=== PATIENT | female | born 1970 | race Hispanic/Latino ===

== ENCOUNTER 2018-06-25 16:08 | Emergency (ER) | payer SELFPAY ==
[2018-06-25 17:15] LABS: #Basophils 0.1 thou/uL (0.0-0.2); #Eosinphils 0.1 thou/uL (0.0-0.7); #Lymphocytes 1.9 thou/uL (1.20-3.40); #Monocytes 0.7 thou/uL (0.11-0.59); #Neutrophils 9.9 thou/uL (1.40-6.50); %Basophils 0.5 % (0.0-1.0); %Eosinophils 0.4 % (0.0-10.0); %Lymphocytes 14.9 % (21.0-51.0); %Monocytes 5.6 % (0.0-10.0); %Neutrophils 78.5 % (42.0-75.0); Hemoglobin 14.9 g/dL (12.0-16.0); Mean Corpuscular HGB CONC 32.7 g/dL (32.0-36.0); Mean Corpuscular Hemoglobin 31.3 pg (27.0-31.0); Mean Corpuscular Volume 95.6 fL (78.0-98.0); Mean Platelet Volume 7.7 fL (7.4-10.4); Platelet Count 268 thou/uL (130-400); RBC Distribution Width 11.5 % (11.5-14.5); Red Blood Cell (RBC) Count 4.77 mill/uL (4.20-5.40); White Blood Cell (WBC) Count 12.7 thou/uL (4.8-10.8)
[2018-06-25 17:28] LABS: Bilirubin Negative (Negative); Blood, Urine Trace (Negative); Clarity CLEAR (Clear); Glucose, Urine (Dipstick) >=1000 mg/dL (Negative); Leukocyte Negative (Negative); Nitrite Negative (Negative); Protein, Urine (Dipstick) Negative (Neg-Trace); Specific Gravity, Urine 1.036 (1.002-1.036); Urobilinogen 0.2 mg/dL (0.2-1.0); pH, Urine 5.5 (5.0-9.0)
[2018-06-25 17:29] LABS: Bacteria/HPF Rare-Few HPF (None Seen); Hyaline Casts/LPF 0-3 HYALINE CAST LPF (0-3 Hyaline); Pathc Cast-AUWi Flag 0.29 (0-2.49); Pregnancy Test - Urine (BHCG) Negative (Negative); Pregu Control Background? CLEAR/WHITE (CLR/WHITE); Pregu Control Bar Appear? YES (CONTROL BAR); Specific Gravity 1.036 (1.002-1.036)
[2018-06-25 17:35] LABS: RBC/HPF 0-3 HPF (0-3); Yeast-All Forms Rare HPF (None Seen)
[2018-06-25 17:38] LABS: ALT (SGPT) 14 U/L (8-55); AST (SGOT) 21 U/L (5-34); Albumin 4.1 g/dL (3.5-5.0); Alkaline Phosphatase 176 U/L (40-150); Anion Gap 12 mmol/L (10-20); BUN (Urea Nitrogen) 9 mg/dL (7.0-18.7); Bilirubin, Total 0.7 mg/dL (0.2-1.2); Calc. Creatinine Clearance 0 mL/min (70-130); Calcium 9.7 mg/dL (7.8-10.44); Carbon Dioxide 25 mmol/L (22-29); Chloride 98 mmol/L (98-107); Estimated GFR-MDRD 71; Globulin 3.3 g/dL (2.4-3.5); Glucose 479 mg/dL (70-105); Potassium 4.4 mmol/L (3.5-5.1); Protein, Total 7.4 g/dL (6.0-8.3); Sodium 131 mmol/L (136-145)
[2018-06-25 18:00] LABS: Base Excess-Venous -0.5 mmol/L (0 (+/- 2.5)); Bicarbonate (HCO3v) 26.3 mmol/L (1.0-85.0); CO2 Tension (PvCO2) 50.4 mmHg (41.0-51.0); Calcium, Ionized 1.15 mmol/L (1.12-1.32); Hemoglobin - Calc 14.6 g/dL (12.0-18.0); O2 Tension (PvO2) 36.9 mmHg (35.0-45.0); T. Carbon Dioxide 27.9 mmol/L (1.0-85.0); pH (Venous) 7.326 (7.35-7.45); vO2 Saturation-calc 65.3 % (94-98)
[2018-06-25] MEDS ORDERED: Insulin Regular 300 UNITS/3 ML VIAL ONE (18:35)
[2018-06-27 22:31] LABS: Chlamydia by PCR Not Detected (NotDetected); GC by PCR Not Detected (NotDetected)
== END 2018-06-25 19:37 | disposition home or self-care (01) ==
LOC: ERS 16:08
DX: E11.65 Type 2 diabetes mellitus with hyperglycemia (principal); N76.0 Acute vaginitis; Z79.84 Long term (current) use of oral hypoglycemic drugs; Z79.899 Other long term (current) drug therapy
CPT/HCPCS: 36416; 80053; 81003; 81015; 81025; 82010; 82330; 82803; 83930; 85025; 87480; 87491; 87510; 87591; 87660; 93005; 96361; 96374; J1815

== ENCOUNTER 2020-02-18 17:49 | Observation (INO) | payer OTHER, SELFPAY ==
[2020-02-18] MEDS ORDERED: Ibuprofen 200 MG TAB ONE (19:20)
[2020-02-18 19:55] LABS: #Lymphocytes 0.9 thou/uL (1.20-3.40); #Monocytes 0.5 thou/uL (0.11-0.59); #Neutrophils 10.5 thou/uL (1.40-6.50); %Basophils 0.2 % (0.0-1.0); %Eosinophils 0.1 % (0.0-10.0); %Lymphocytes 7.6 % (21.0-51.0); %Monocytes 4.3 % (0.0-10.0); %Neutrophils 87.8 % (42.0-75.0); Hemoglobin 13.2 g/dL (12.0-16.0); Mean Corpuscular Hemoglobin 30.9 pg (27.0-31.0); Mean Corpuscular Volume 93.8 fL (78.0-98.0); Mean Platelet Volume 7.5 fL (7.4-10.4); Platelet Count 266 thou/uL (130-400); RBC Distribution Width 11.9 % (11.5-14.5); Red Blood Cell (RBC) Count 4.28 mill/uL (4.20-5.40)
--- NOTE | 2020-02-18 19:55 | RAD ---
RADIOGRAPH CHEST 1 VIEW: DATE: 02/18/2020 TIME: 7:41 PM HISTORY: 49-year-old female with hypoxemia, tachycardia, tachypnea, and fever COMPARISON: none FINDINGS: There are bilateral lower lung zone infiltrates, left greater than right. Lung apices are grossly carmen ar. There is fracture of the mid diaphysis of the right clavicle, with approximately one full shaft width inferior displacement and probable lateral displacement, of the lateral fragment. There appears to be a long osseous bridge or advanced callus between the medial and lateral fracture fragments, suggesting that this fracture is late subacute or old. IMPRESSION: 1. Bibasilar infiltrates 2. Right clavicular displaced fracture, probably nonacute, but clinical correlation is recommended.
[2020-02-18 20:01] LABS: Bilirubin Negative (Negative); Blood, Urine Trace (Negative); Clarity Clear (Clear); Glucose, Urine (Dipstick) Greater than 1000 mg/dL (Negative); Ketone, Urine Greater than 150 mg/dL (Negative); Leukocyte Negative Leu/uL (Negative); Nitrite Negative (Negative); Pregnancy Test - Urine (BHCG) Negative (Negative); Pregu Control Background? CLEAR/WHITE (CLR/WHITE); Pregu Control Bar Appear? YES (CONTROL BAR); Protein, Urine (Dipstick) 200 mg/dL (Neg-Trace); RBC/HPF 0-3 HPF (0-3); Specific Gravity 1.039 (1.002-1.036); Specific Gravity, Urine 1.039 (1.002-1.036); WBC/HPF 0-3 HPF (0-3)
[2020-02-18 20:03] LABS: Bacteria/HPF 1+ HPF (None Seen)
[2020-02-18 20:16] LABS: ALT (SGPT) 11 U/L (8-55); AST (SGOT) 18 U/L (5-34); Albumin 3.9 g/dL (3.5-5.0); Alkaline Phosphatase 72 U/L (40-110); Anion Gap 16 mmol/L (10-20); BUN (Urea Nitrogen) 8 mg/dL (7.0-18.7); Bilirubin, Total 0.7 mg/dL (0.2-1.2); CK (CPK) 76 U/L (29-168); Calc. Creatinine Clearance 0 mL/min (70-130); Calcium 9.1 mg/dL (7.8-10.44); Carbon Dioxide 24 mmol/L (22-29); Chloride 95 mmol/L (98-107); Estimated GFR-MDRD 79; Globulin 3.8 g/dL (2.4-3.5); Glucose 266 mg/dL (70-105); Protein, Total 7.7 g/dL (6.0-8.3); Sodium 131 mmol/L (136-145)
[2020-02-18] MEDS ORDERED: cefTRIAXone\\ROCEPHIN 2 GM VIAL ONE (20:16)
[2020-02-18] MEDS ORDERED: Dexamethasone 10 MG/ML VIAL ONE (20:16)
[2020-02-18] MEDS ORDERED: Azithromycin 500 MG VIAL ONE (20:16)
[2020-02-18] MEDS ORDERED: Ondansetron PF 4 MG/2 ML Vial IVP PRN (23:43)
[2020-02-18] MEDS ORDERED: Ondansetron ODT 4 MG TAB SL PRN (23:43)
[2020-02-18] MEDS ORDERED: Sodium Chloride 0.9% 1,000 ML IV SCH (23:43)
[2020-02-18] MEDS ORDERED: Acetaminophen 325 MG TAB PO PRN (23:43)
[2020-02-18 23:50] VITALS: BMI 37.1
[2020-02-19] MEDS ORDERED: HumaLOG 300 UNITS/3 ML VIAL SC PRN (07:03)
[2020-02-19] MEDS ORDERED: Dextrose 50% Abboject 50 ML SYRINGE SLOW IVP PRN (07:03)
[2020-02-19] MEDS ORDERED: Dextrose 5% in Water 1,000 ML IV PRN (07:03)
--- NOTE | 2020-02-19 08:13 | HP ---
REASON FOR ADMISSION: Headache. HISTORY OF PRESENT ILLNESS: This is a 49-year-old female patient, who presented to the emergency room reporting having headaches. History going back to one week before her presentation, she also reported intermittent nausea, felt nauseous but did not have any vomiting, felt like she has some chest congestion. A chest x-ray was done that showed findings consistent of COVID-19. PAST MEDICAL HISTORY: Diabetes. SOCIAL HISTORY: She does not smoke. Does not drink alcohol. FAMILY HISTORY: Reviewed, found to be noncontributory. ALLERGIES: NO KNOWN TO HAVE DRUG ALLERGIES. PHYSICAL EXAMINATION: GENERAL: She is awake, alert, and oriented, does not appear in distress. VITAL SIGNS: Her blood pressure is 108/55, pulse 95, temperature 99 degrees, and saturating 96% on 2 L nasal cannula. HEENT: Head is nontraumatic and normocephalic. Pupils equal, reactive. Extraocular movements are intact. Nonicteric sclerae. Well-injected conjunctivae. Oral mucosa normal. Nasal mucosa normal. NECK: Supple. No adenopathy. No murmur. Thyroid is not palpable. Trachea is midline. No supraclavicular lymphadenopathy. HEART: S1 and S2, regular. No murmurs. No gallops. No friction rubs. No displacement of PMI. LUNGS: Inspiratory crackles bilaterally. ABDOMEN: Bowel sounds are positive. Nontender abdomen. No hepatosplenomegaly. EXTREMITIES: No lower extremity edema. No cyanosis noted. NEUROLOGIC: Cranial nerves 2 through 12 within normal limits. Normal motor function. Normal sensory function. Normal reflexes. LABORATORY DATA: Blood work shows a WBC of 12, hemoglobin of 13.2, neutrophil count 87.8%. Sodium 131, potassium of 4, BUN 8, creatinine 0.78, and glucose of 266. Urinalysis does not show any evidence of infection. A chest x-ray shows bibasilar infiltrate, right clavicular displaced fracture probably nonacute, but clinical correlation is recommended. ASSESSMENT AND PLAN: This is a 49-year-old female patient, presenting with cough and headaches. Chest x-ray consistent with COVID. We did send a COVID-19 test. We admitted her overnight and she appears to be doing well. We will continue giving her IV Decadron and for her diabetes, we will have her on insulin sliding scale and reconcile her home medications. For deep venous thrombosis prophylaxis, she will be on Lovenox subcutaneously. Job ID: [id number]
[2020-02-19] MEDS ORDERED: Pioglitazone HCl 15 MG TAB PO SCH (09:00)
[2020-02-19] MEDS ORDERED: Enoxaparin Sodium 40 MG/0.4 ML SYRINGE SC SCH (09:00)
[2020-02-19] MEDS ORDERED: Dexamethasone 6 MG in Sodium Chloride 0.9% 50 ML IVPB SCH (09:00)
[2020-02-19 12:38] VITALS: BP 109/53; TEMP 97.4
[2020-02-19 14:47] LABS: SARS-CoV-2 MS2 Positive; SARS-CoV-2 N Gene Positive; SARS-CoV-2 S Gene Positive; SARS-CoV-2 orf1ab Positive
--- NOTE | 2020-02-20 01:52 | DIS ---
DATE OF ADMISSION: 02/18/2020 DATE OF DISCHARGE: 02/19/2020 HOSPITAL COURSE: Ms. Harry is a 49-year-old female with medical history of diabetes, who presented with cough and headaches for the past week. She was diagnosed with COVID pneumonia based on chest x-ray findings, symptoms, and PCR, but did not require further inpatient management. She did not have fevers, dyspnea, or requirement for oxygen supplementation. As for her headaches, she was diagnosed with tension headaches that significantly improved during her inpatient stay. She was discharged home with instructions regarding isolation on Decadron and azithromycin for six additional days with followup appointments with primary care physician. PHYSICAL EXAMINATION: VITAL SIGNS: Blood pressure 109/53, pulse 86, respiratory rate 18, oxygen saturation 92% on room air, and temperature 97.4. GENERAL: Lying comfortably in bed, in no apparent distress. Morbidly obese. HEENT: Normocephalic and atraumatic. No lymphadenopathy. HEART: Regular rate and rhythm. No murmurs, rubs, or gallops. LUNGS: Mild inspiratory rales, mostly bibasilar. ABDOMEN: Nontender and nondistended. Normal bowel sounds. EXTREMITIES: No edema. NEUROLOGIC: Cranial nerves 2 through 12 grossly intact. PSYCHIATRIC: Proper mood and affect. Alert and oriented x3. MEDICATION LIST: New medications; 1. Acetaminophen for headaches. 2. Decadron 6 mg p.o. daily for six more days to complete treatment for 7 days. 3. Azithromycin 500 mg p.o. daily for six more days to complete treatment for 7 days. Continued medications; 1. Glipizide. 2. Pioglitazone. 3. Metformin. Modified medications, no modified medications. Job ID: [id number]
== END 2020-02-19 16:34 | disposition home or self-care (01) ==
LOC: ERS 17:49 → 2SW 23:39
PROVIDERS: ADMIT Internal Medicine; ATTEND Internal Medicine
DX: U07.1 COVID-19 (principal); J12.89 Other viral pneumonia; R51 Headache; E11.9 Type 2 diabetes mellitus without complications; Z79.84 Long term (current) use of oral hypoglycemic drugs
CPT/HCPCS: 36415; 36416; 71045; 80053; 81003; 81015; 81025; 82550; 83605; 84145; 84484; 85025; 87040; 87077; 87086; 87635; 93005; 94760; 96361; 96365; 96367; 96372; 96375; 96376; G0378; J0456; J0696; J1100; J1650; U0003

== ENCOUNTER 2025-05-16 22:38 | Emergency (ER) | payer OTHER, SELFPAY ==
[2025-05-17] MEDS ORDERED: Ketorolac Tromethamine 30 MG (1 mL) VIAL ONE (01:12)
[2025-05-17 01:27] LABS: #Basophils 0.05 10x3/uL (0.0-0.2); #Eosinophils 0.13 10x3/uL (0.0-0.7); #Monocytes 0.62 10x3/uL (0.11-0.59); #Neutrophils 4.22 10x3/uL (1.40-6.50); %Basophils 0.7 % (0.0-1.0); %Eosinophils 1.8 % (0.0-10.0); %Lymphocytes 31.0 % (21.0-51.0); %Monocytes 8.5 % (0.0-10.0); %Neutrophils 57.7 % (42.0-75.0); Hematocrit 38.4 % (36.0-47.0); Hemoglobin 12.4 g/dL (12.0-16.0); Mean Corpuscular Hemoglobin 29.9 pg (27.0-31.0); Mean Corpuscular Volume 92.5 fL (78.0-98.0); Platelet Count 289 10x3/uL (130-400); Red Blood Cell (RBC) Count 4.15 mill/uL (4.20-5.40); White Blood Cell (WBC) Count 7.30 10x3/uL (4.8-10.8)
[2025-05-17 01:46] LABS: ALT (SGPT) 8 U/L (Less than 34); AST (SGOT) 17 U/L (11-34); Albumin 4.2 g/dL (3.1-4.5); Alkaline Phosphatase 68 U/L (40-110); Anion Gap 10 mmol/L (10-20); BUN (Urea Nitrogen) 20 mg/dL (9.8-20.1); Bilirubin, Total 0.6 mg/dL (0.3-1.2); Calc. Creatinine Clearance 0 mL/min (70-130); Calcium 9.2 mg/dL (7.8-10.44); Carbon Dioxide 28 mmol/L (22-29); Chloride 103 mmol/L (98-107); Globulin 2.9 g/dL (2.4-3.5); Glucose 193 mg/dL (70-105); Potassium 4.0 mmol/L (3.5-5.1); Sodium 137 mmol/L (136-145)
== END 2025-05-17 03:09 | disposition home or self-care (01) ==
LOC: ERS 22:38
DX: E11.40 Type 2 diabetes mellitus with diabetic neuropathy, unspecified (principal)
CPT/HCPCS: 80053; 85025; 96374; 96375; J1885